=== PATIENT | male | born 1990 | race African-American/Black ===

== ENCOUNTER 2024-08-15 14:07 | Emergency (ER) | payer SELFPAY ==
[~2024-08-15] VITALS: Ht 177.8 cm; Wt 80.0 kg
[2024-08-15 14:09] VITALS: BP 135/79; PULSE 101; RESP 22; TEMP 100.5; O2SAT 95
[2024-08-15] MEDS ORDERED: IBUPROFEN 400MG TABLET PO ONE (14:15)
[2024-08-15] MEDS ORDERED: ACETAMINOPHEN 325MG TABLET PO ONE (14:15)
[2024-08-15] MEDS ORDERED: IBUP-2028 MT (14:42)
== END 2024-08-15 22:56 | disposition left against medical advice (07) ==
LOC: ER 14:28
DX: R05.9 Cough, unspecified (principal); R50.9 Fever, unspecified; R51.9 Headache, unspecified
CPT/HCPCS: 71045; 99283